=== PATIENT | male | born 1975 | race Caucasian/White ===

== ENCOUNTER 2020-12-23 13:35 | Emergency (ER) | payer BC ==
[2020-12-23 13:23] LABS: HEMOGLOBIN 14.3 gm/dl (14.0-17.5); RED BLOOD COUNT 4.36 M/UL (4.20-5.50); WHITE BLOOD COUNT 11.5 K/UL (4.5-11.0)
[2020-12-23 13:46] LABS: BUN/CREATININE RATIO 12 (0-10)
== END 2020-12-23 16:57 | disposition home or self-care (01) ==
LOC: ER1 13:35
PROVIDERS: Physician Assistant
DX: E86.0 Dehydration (principal); I10 Essential (primary) hypertension; E78.5 Hyperlipidemia, unspecified; F17.210 Nicotine dependence, cigarettes, uncomplicated
CPT/HCPCS: 71045; 80053; 81001; 82550; 82553; 83735; 83874; 84100; 84484; 85025; 93005; 96365; 96366; 99285; G0480; J3411; J3475; J7030

== ENCOUNTER → 2021-03-24 | Outpatient (CLI) | payer BC | LOC: HEART 5 02-17 09:30 | DX: I10 Essential (primary) hypertension (principal); R55 Syncope and collapse | CPT/HCPCS: 93306 ==

== ENCOUNTER → 2021-05-20 | Outpatient (CLI) | payer BC | LOC: KOH-I 08:53 | DX: M25.571 Pain in right ankle and joints of right foot (principal); M19.071 Primary osteoarthritis, right ankle and foot; Z98.890 Other specified postprocedural states | CPT/HCPCS: 73610 ==

== ENCOUNTER → 2021-10-04 | Outpatient (CLI) | payer BC | LOC: HEART 5 14:04 | DX: R00.2 Palpitations (principal) ==

== ENCOUNTER → 2021-12-27 | Outpatient (CLI) | payer BC | LOC: KOH-I 15:39 | DX: M25.571 Pain in right ankle and joints of right foot (principal) | CPT/HCPCS: 73610 ==

== ENCOUNTER → 2022-01-17 | Outpatient (CLI) | payer BC | LOC: EMI 13:00 | DX: R27.0 Ataxia, unspecified (principal); R90.82 White matter disease, unspecified | CPT/HCPCS: 70551 ==

== ENCOUNTER → 2022-04-05 | Outpatient (CLI) | payer BC | LOC: EMI 13:25 | DX: M25.511 Pain in right shoulder (principal); M75.111 Incomplete rotator cuff tear or rupture of right shoulder, not specified as traumatic | CPT/HCPCS: 73221 ==

== ENCOUNTER 2022-06-30 14:24 | Emergency (ER) | payer OTHER ==
[2022-06-30] MEDS ORDERED: VIGAMOX3 ML OD (17:47)
[2022-06-30] MEDS ORDERED: ERYTHROMYCIN OP1 GM EYERT (17:47)
== END 2022-06-30 18:05 | disposition home or self-care (01) ==
LOC: ER1 14:24
DX: T54.3X1A Toxic effect of corrosive alkalis and alkali-like substances, accidental (unintentional), initial encounter (principal); H10.211 Acute toxic conjunctivitis, right eye; S05.01XA Injury of conjunctiva and corneal abrasion without foreign body, right eye, initial encounter; F17.200 Nicotine dependence, unspecified, uncomplicated; Z88.8 Allergy status to other drugs, medicaments and biological substances; Z23 Encounter for immunization; X58.XXXA Exposure to other specified factors, initial encounter
CPT/HCPCS: 90471; 90714; 99283